=== PATIENT | female | born 1990 | race African-American/Black ===

== ENCOUNTER 2020-09-22 00:48 | Observation (INO) | payer MEDICAID, OTHER ==
[~2020-09-22] VITALS: Ht 154.9 cm; Wt 62.6 kg
[~2020-09-22 00:48] MED LIST: CALCIUM; PRENATAL VITAMINS
[2020-09-22] MEDS ORDERED: LACTATED RINGERS 1,000 ML IV SCH (02:15)
[2020-09-22 03:12] LABS: CLARITY URINE CLOUDY (CLEAR); COLOR URINE YELLOW (YELLOW); KETONES URINE TRACE (NEGATIVE); LEUKOCYTE ESTERASE URINE TRACE (NEGATIVE); NITRITE URINE NEGATIVE (NEGATIVE); OCCULT BLOOD URINE NEGATIVE (NEGATIVE); PH URINE 7.5 (4.5-8.0); PROTEIN URINE TRACE (NEGATIVE); SPECIFIC GRAVITY URINE 1.023 (1.005-1.030)
== END 2020-09-22 04:50 | disposition home or self-care (01) ==
LOC: 8 EST LDRP 00:48
PROVIDERS: ADMIT Obstetrics & Gynecology; ATTEND Obstetrics & Gynecology
DX: O26.893 Other specified pregnancy related conditions, third trimester (principal); R10.30 Lower abdominal pain, unspecified; Z3A.38 38 weeks gestation of pregnancy
CPT/HCPCS: 59025; 76815; 76818; 81003; 96360; 96361; G0378; 99281